=== PATIENT | male | born 1955 | race Caucasian/White ===

== ENCOUNTER → 2016-11-05 | Outpatient (REF) | payer BC | LOC: M LAB REF 13:15 | DX: L82.1 Other seborrheic keratosis (principal) ==

== ENCOUNTER → 2019-01-16 | Outpatient (REF) | payer BC | LOC: M LABCFH 15:04 | DX: L82.0 Inflamed seborrheic keratosis (principal); L82.1 Other seborrheic keratosis ==

== ENCOUNTER → 2024-06-11 | Outpatient (REF) | payer MEDICARE, BC ==
[2024-06-11 18:06] LABS: APPEARANCE, URINE CLEAR (CLEAR); BACTERIA, URINE AUTO NEGATIVE (NEGATIVE); BILIRUBIN, URINE AUTO NEGATIVE (NEGATIVE); BLOOD, URINE BLOOD 2+ (NEGATIVE); COLOR, URINE YELLOW (YELLOW); GLUCOSE, URINE (UA) AUTO NEGATIVE (NEGATIVE); KETONE, URINE AUTO NEGATIVE (NEGATIVE); LEUKOCYTE ESTERASE, URINE AUTO TRACE (NEGATIVE); MUCUS, URINE SMALL (NEGATIVE); NITRITE, URINE AUTO NEGATIVE (NEGATIVE); PROTEIN, URINE AUTO NEGATIVE (NEGATIVE); RBC, URINE AUTO 19 /HPF (0-3); SPECIFIC GRAVITY URINE AUTO 1.015 (1.002-1.035); SQUAMOUS EPITHELIAL CELL UR AU 1 /HPF (0-6); UROBILINOGEN, URINE AUTO 0.2 mg/dL (0.0-2.0); WBC, URINE AUTO 8 /HPF (0-3)
== END ==
LOC: M LAB REF 16:56 → M SMT 16:56
PROVIDERS: ATTEND Nurse Practitioner Family
DX: R31.29 Other microscopic hematuria (principal)

== ENCOUNTER → 2024-06-24 | Outpatient (CLI) | payer MEDICARE, BC ==
[~2024-06-24] MED LIST: ISOVUE-370 76% 100ML VIAL As Ordered ONE
== END ==
LOC: M RAD 10:38
PROVIDERS: ATTEND Nurse Practitioner Family
DX: E27.8 Other specified disorders of adrenal gland (principal); K80.20 Calculus of gallbladder without cholecystitis without obstruction; N20.0 Calculus of kidney; N28.1 Cyst of kidney, acquired
CPT/HCPCS: 74170; Q9967

== ENCOUNTER 2024-07-30 06:06 | Day surgery (SDC) | payer MEDICARE, BC ==
[~2024-07-30] VITALS: Ht 180.3 cm; Wt 155.0 kg
[~2024-07-30 06:06] MED LIST changes: +ALLO300T2 PO; +AMLO1TAB25 PO; +ATOR1TAB21 PO; +HYDR-3490 PO; +IBUP80TA PO; -ISOVUE-370 76% 100ML VIAL As Ordered ONE; +LOSA100T46 PO; +OMEG-28 PO; +POTA10CA70 PO
[2024-07-30] MEDS ORDERED: LR 1,000 ML IV SCH (06:35)
[2024-07-30] MEDS ORDERED: dexmedeTOMIDine (4MCG/ML)200MCG/50ML BTL (PRECEDEX) As Ordered ONE (07:02)
[2024-07-30] MEDS ORDERED: ONDANSETRON 4MG 2ML VIAL As Ordered ONE (07:02)
[2024-07-30] MEDS ORDERED: ACETAMINOPHEN 1000MG/100ML IV BAG As Ordered ONE (07:02)
[2024-07-30] MEDS ORDERED: LIDOCAINE 2% 100MG/5ML SDV (FOR ANES.) As Ordered ONE (07:02)
[2024-07-30] MEDS ORDERED: fentaNYL 100 MCG/2 ML INJECTION As Ordered ONE (07:02)
[2024-07-30] MEDS ORDERED: propofoL 200 MG/20 ML VIAL As Ordered ONE (07:02)
[2024-07-30] MEDS ORDERED: MIDAZOLAM INJ 2MG/2ML VIAL As Ordered ONE (07:02)
[2024-07-30] MEDS: ceFAZolin SOD 1 GM in DEXTROSE 5% (D5W) ADV/MINI-BAG 50 ML IV ONE (07:30)
[2024-07-30] MEDS: ceFAZolin SOD 2 GM in IV 1 EA IV ONE (07:30)
[2024-07-30] MEDS ORDERED: FLOM0.4C39 PO (07:58)
[2024-07-30] MEDS ORDERED: TRAM50TA2 PO (07:58)
[2024-07-30 08:47] VITALS: BP 133/83; TEMP 97.5; O2SAT 95
== END 2024-07-30 08:49 | disposition home or self-care (01) ==
LOC: M SDC 06:06
PROVIDERS: ATTEND Urology
DX: N20.0 Calculus of kidney (principal); I10 Essential (primary) hypertension; E78.00 Pure hypercholesterolemia, unspecified; M10.9 Gout, unspecified; Z79.899 Other long term (current) drug therapy; Z87.891 Personal history of nicotine dependence; Z88.5 Allergy status to narcotic agent
CPT/HCPCS: 50590; 74018; J0131; J0690; J1100; J2250; J2405; J3010

== ENCOUNTER → 2024-08-24 | Outpatient (REF) | payer MEDICARE, BC ==
[~2024-08-24] MED LIST changes: +FLOM0.4C39 PO; +TRAM50TA2 PO
== END ==
LOC: M SMT 16:55
PROVIDERS: ATTEND Nurse Practitioner Family
DX: N20.0 Calculus of kidney (principal)

== ENCOUNTER → 2024-09-04 | Outpatient (REF) | LOC: M LABCFH 11:28 | PROVIDERS: ATTEND Nurse Practitioner Family | DX: N39.0 Urinary tract infection, site not specified (principal) ==

== ENCOUNTER → 2024-09-08 | Outpatient (CLI) | payer MEDICARE, BC ==
[~2024-09-08] MED LIST changes: +PROHANCE 279.3MG/ML 15ML VIAL ONE; +PROHANCE 279.3MG/ML 5ML VIAL ONE
== END ==
LOC: M PLAIMG 13:49
PROVIDERS: ATTEND Nurse Practitioner Family
DX: D35.02 Benign neoplasm of left adrenal gland (principal)
CPT/HCPCS: 74183; A9576

== ENCOUNTER 2024-09-14 06:19 | Day surgery (SDC) | payer MEDICARE, BC ==
[~2024-09-14] VITALS: Ht 180.3 cm; Wt 155.9 kg
[~2024-09-14 06:19] MED LIST changes: +ASPI81TA26 PO; -PROHANCE 279.3MG/ML 15ML VIAL ONE; -PROHANCE 279.3MG/ML 5ML VIAL ONE
[2024-09-14] MEDS ORDERED: ONDANSETRON 4MG 2ML VIAL As Ordered ONE (06:52)
[2024-09-14] MEDS ORDERED: propofoL 200 MG/20 ML VIAL As Ordered ONE (06:52)
[2024-09-14] MEDS ORDERED: LIDOCAINE 2% 100MG/5ML SDV (FOR ANES.) As Ordered ONE (06:52)
[2024-09-14] MEDS ORDERED: MIDAZOLAM INJ 2MG/2ML VIAL As Ordered ONE (06:55)
[2024-09-14] MEDS ORDERED: fentaNYL 100 MCG/2 ML INJECTION As Ordered ONE (06:55)
[2024-09-14] MEDS ORDERED: ROCURONIUM BROMIDE 50MG/5ML VIAL As Ordered ONE (07:18)
[2024-09-14] MEDS ORDERED: SUCCINYLCHOLINE 100MG/5ML SYRINGE As Ordered ONE (07:18)
[2024-09-14] MEDS ORDERED: SUGAMMADEX SODIUM 500 MG/5 ML VIAL (BRIDION) As Ordered ONE (07:20)
[2024-09-14] MEDS: ceFAZolin SOD 3 GM in DEXTROSE 5% (D5W) MINI-BAG PLU 1... IV ONE (07:44)
[2024-09-14] MEDS ORDERED: ACETAMINOPHEN 1000MG/100ML IV BAG As Ordered ONE (07:48)
[2024-09-14] MEDS: ISOVUE-300 61% 100ML VIAL As Ordered ONE (09:00)
[2024-09-14] MEDS ORDERED: fentaNYL 100 MCG/2 ML INJECTION IV PRN (09:05)
[2024-09-14 10:54] VITALS: BP 162/85; TEMP 97.5; O2SAT 95
== END 2024-09-14 11:33 | disposition home or self-care (01) ==
LOC: M SDC 06:19
PROVIDERS: ATTEND Urology
DX: N20.0 Calculus of kidney (principal); Z68.42 Body mass index [BMI] 45.0-49.9, adult; Z88.5 Allergy status to narcotic agent; Z79.899 Other long term (current) drug therapy
CPT/HCPCS: 52356; 76000; 82365; C1769; C1894; C2617; J0131; J0330; J0690; J1100; J2250; J2405; J3010; Q9967

== ENCOUNTER → 2024-10-26 | Outpatient (REF) | LOC: M LABCFH 12:02 | DX: N39.0 Urinary tract infection, site not specified (principal) ==

== ENCOUNTER 2024-11-04 06:07 | Inpatient (IN) | payer MEDICARE, BC ==
[~2024-11-04] VITALS: Ht 180.3 cm; Wt 153.8 kg
[2024-11-04] VITALS (9 sets, daily range): BP systolic 103–120; BP diastolic 60–79; TEMP 97–98.2; O2SAT 91–93
[2024-11-04] MEDS ORDERED: propofoL 200 MG/20 ML VIAL As Ordered ONE (07:12)
[2024-11-04] MEDS ORDERED: ROCURONIUM BROMIDE 50MG/5ML VIAL As Ordered ONE (07:12)
[2024-11-04] MEDS ORDERED: MIDAZOLAM INJ 2MG/2ML VIAL As Ordered ONE (07:12)
[2024-11-04] MEDS ORDERED: KETAMINE HCL 200MG/20ML VIAL As Ordered ONE (07:12)
[2024-11-04] MEDS ORDERED: fentaNYL 100 MCG/2 ML INJECTION As Ordered ONE (07:12)
[2024-11-04] MEDS ORDERED: ONDANSETRON 4MG 2ML VIAL As Ordered ONE (07:13)
[2024-11-04] MEDS ORDERED: ACETAMINOPHEN 1000MG/100ML IV BAG As Ordered ONE (07:13)
[2024-11-04] MEDS ORDERED: LIDOCAINE 2% 100MG/5ML SDV (FOR ANES.) As Ordered ONE (07:13)
[2024-11-04] MEDS ORDERED: SUGAMMADEX SODIUM 500 MG/5 ML VIAL (BRIDION) As Ordered ONE (07:13)
[2024-11-04] MEDS ORDERED: ONDANSETRON 4MG 2ML VIAL IV PRN (07:25)
[2024-11-04] MEDS: ceFAZolin SOD 3 GM in DEXTROSE 5% (D5W) MINI-BAG PLU 1... IV ONE (07:47)
[2024-11-04 08:02] LABS: BLOOD UREA NITROGEN 12 MG/DL (9-23); CALCIUM LEVEL 8.8 MG/DL (8.3-10.6); CARBON DIOXIDE LEVEL 25 MMOL/L (20-31); CHLORIDE LEVEL 103 MMOL/L (98-107); CREATININE FOR GFR 0.86 MG/DL (0.70-1.30); GLOMERULAR FILTRATION RATE > 90.0 (>49); GLUCOSE, FASTING 118 MG/DL (74-106); HEMOGLOBIN 15.5 g/dl (13.5-17.5); MEAN CORPUSCULAR HEMOGLOBIN 31.3 pg (27.0-33.0); MEAN CORPUSCULAR HGB CONC 35.2 g/dl (32.0-36.5); MEAN CORPUSCULAR VOLUME 88.9 fl (80.0-96.0); PLATELET COUNT, AUTOMATED 228 10^3/uL (150-450); POTASSIUM SERUM 3.7 MMOL/L (3.5-5.1); RED BLOOD COUNT 4.95 10^6/uL (4.30-6.10); SODIUM LEVEL 137 MMOL/L (136-145); WHITE BLOOD COUNT 7.8 10^3/uL (4.0-10.0)
[2024-11-04] MEDS ORDERED: ePHEDrine SULFATE 25 MG/5 ML(5MG/ML) SYRINGE As Ordered ONE (08:31)
[2024-11-04] MEDS ORDERED: PHENYLephrine 500MCG 5ML (100MCG/ML) SYRINGE As Ordered ONE (08:31)
[2024-11-04] MEDS: ceFAZolin SODIUM 2 GM VIAL As Ordered ONE (11:47)
[2024-11-04] MEDS: LIDOCAINE 1% SDV 30ML VIAL As Ordered ONE (11:57)
[2024-11-04] MEDS ORDERED: HYDROmorphone HCL 2MG/ML 1ML VIAL As Ordered ONE (12:03)
[2024-11-04 12:55] LABS: HEMATOCRIT 42.8 % (42.0-52.0); HEMOGLOBIN 14.6 g/dl (13.5-17.5); MEAN CORPUSCULAR HEMOGLOBIN 30.9 pg (27.0-33.0); MEAN CORPUSCULAR HGB CONC 34.1 g/dl (32.0-36.5); MEAN CORPUSCULAR VOLUME 90.5 fl (80.0-96.0); PLATELET COUNT, AUTOMATED 192 10^3/uL (150-450); RED BLOOD COUNT 4.73 10^6/uL (4.30-6.10); WHITE BLOOD COUNT 9.1 10^3/uL (4.0-10.0)
[2024-11-04 13:17] LABS: CALCIUM LEVEL 8.8 MG/DL (8.3-10.6); CREATININE FOR GFR 1.02 MG/DL (0.70-1.30); GLOMERULAR FILTRATION RATE 80.6 (>49)
[2024-11-04] MEDS: NS (Normal Saline) 0.9% 500 ML IV SCH (14:11)
[2024-11-04] MEDS: PERCOCET 5MG/325MG TAB PO PRN ×2 (14:12→19:05)
[2024-11-04] MEDS ORDERED: HOME MED LIST COMPLETE! XX SCH (15:10)
[2024-11-04] MEDS: ceFAZolin SOD 1 GM in DEXTROSE 5% (D5W) ADV/MINI-BAG 50 ML IV SCH (17:10)
[2024-11-04] MEDS: DOCUSATE SODIUM 100MG CAPSULE PO SCH (21:00)
[2024-11-04] MEDS: diphenhydrAMINE 50MG/ML VIAL IV STA (21:10)
[2024-11-04] MEDS: POTASSIUM CHLORIDE 10MEQ SR TABLET PO SCH (21:10)
[2024-11-05 00:39] VITALS: BP 106/59; TEMP 97.2; O2SAT 89
[2024-11-05] MEDS: KETOROLAC TROMETHAMINE 10 MG TAB PO PRN (00:40)
[2024-11-05 00:42] VITALS: O2SAT 93
[2024-11-05 04:11] VITALS: BP 120/70; TEMP 98.1; O2SAT 94
[2024-11-05] MEDS: ACETAMINOPHEN 325 MG TAB PO PRN (07:32)
[2024-11-05 08:00] LABS: HEMATOCRIT 39.2 % (42.0-52.0); HEMOGLOBIN 13.8 g/dl (13.5-17.5); MEAN CORPUSCULAR HEMOGLOBIN 31.9 pg (27.0-33.0); MEAN CORPUSCULAR HGB CONC 35.2 g/dl (32.0-36.5); MEAN CORPUSCULAR VOLUME 90.7 fl (80.0-96.0); PLATELET COUNT, AUTOMATED 178 10^3/uL (150-450); RED BLOOD COUNT 4.32 10^6/uL (4.30-6.10); WHITE BLOOD COUNT 9.2 10^3/uL (4.0-10.0)
[2024-11-05] MEDS: ASPIRIN 81MG ENTERIC TABLET PO SCH (08:20)
[2024-11-05] MEDS: allopurinoL 300 MG TAB PO SCH (08:20)
[2024-11-05 08:21] LABS: CALCIUM LEVEL 8.6 MG/DL (8.3-10.6); CREATININE FOR GFR 0.96 MG/DL (0.70-1.30); GLOMERULAR FILTRATION RATE 86.6 (>49); POTASSIUM SERUM 3.8 MMOL/L (3.5-5.1)
[2024-11-05 08:24] VITALS: BP 119/69
[2024-11-05] MEDS: LOSARTAN 50MG TABLET PO SCH (08:24)
[2024-11-05 08:45] VITALS: BP 119/69; TEMP 98.1; O2SAT 92
[2024-11-05] MEDS ORDERED: KETO10TAB PO (12:08)
[2024-11-05] MEDS ORDERED: COLA100C5 PO (12:08)
[2024-11-05 12:30] VITALS: BP 119/68; TEMP 98.2; O2SAT 95
== END 2024-11-05 13:41 | disposition home or self-care (01) | DRG 615 ==
LOC: M OR 06:07 → M MSPAV 13:35 → EDSTATUS 11-17 07:30
PROVIDERS: ADMIT Urology; ATTEND Urology
PROC: 0TP98DZ Removal of Intraluminal Device from Ureter, Via Natural or Artificial Opening Endoscopic (ICD-10-PCS; 2024-11-04)
PROC: 0GT24ZZ Resection of Left Adrenal Gland, Percutaneous Endoscopic Approach (ICD-10-PCS; principal; 2024-11-04 07:30)
PROC: 8E0W4CZ Robotic Assisted Procedure of Trunk Region, Percutaneous Endoscopic Approach (ICD-10-PCS; 2024-11-04 07:30)
DX: E27.8 Other specified disorders of adrenal gland (principal); T78.40XA Allergy, unspecified, initial encounter; Z96.0 Presence of urogenital implants; I10 Essential (primary) hypertension; Z79.82 Long term (current) use of aspirin; Z79.899 Other long term (current) drug therapy